=== PATIENT | male | born 1960 | race Caucasian/White ===

== ENCOUNTER 2020-01-17 07:36 | Day surgery (SDC) | payer OTHER, SELFPAY ==
[2020-01-13 15:50] VITALS: BMI 25.5
--- NOTE | 2020-01-16 08:57 | P.CONAN_ITS ---
Documented by User: Malena Blum 01/16/20 08:58 HPI - Anesthesia Eval Consult details Narrative: 59yo M for Colonoscopy [facility] Past Medical History Medical History Asthma COPD (chronic obstructive pulmonary disease) Depression Eye abnormality History of diverticulitis Macular degeneration Surgical History Surgical History History of right inguinal hernia repair Social History Social History Smoking Status: Unknown if ever smoked Advance Directives: No Advance Directives Information Provided: No Advance Directives on File: No Meds Allergies Allergy/AdvReac Type Severity Reaction Status Date / Time quetiapine [From Seroquel] Allergy Unknown Verified 01/17/20 07:46 Home Medications Medication Instructions Recorded Confirmed Type hydroxyzine HCl 01/13/20 01/13/20 History lamotrigine 01/13/20 History lisinopril 5 mg PO DAILY 01/17/20 01/17/20 History Exam Exam Date and Time: January 16, 2020 0857 Height,Weight and Vital Signs: Height 6 ft 2 in Weight 90.265 kg Pertinent Lab Results Pertinent Lab Results: Laboratory Tests 10/22/19 10/22/19 13:40 13:40 WBC 7.0 Hgb 17.5 Hct 53.4 H Plt Count 201 Sodium 139 Potassium 4.2 Chloride 107 BUN 18 H Creatinine 0.98 Assessment and Plan Assessment Anesthesia Assessment: Chart Reviewed Documented by User: Glen Vargas 01/17/20 08:08 [facility] Past Medical History Medical History Asthma COPD (chronic obstructive pulmonary disease) Depression Eye abnormality History of diverticulitis Macular degeneration Surgical History Surgical History History of right inguinal hernia repair Social History Social History (Reviewed 01/17/20 @ 08:08 by Glen Griggs Smoking Status: Unknown if ever smoked Advance Directives: No Advance Directives Information Provided: No Advance Directives on File: No Meds Allergies Allergy/AdvReac Type Severity Reaction Status Date / Time quetiapine [From Seroquel] Allergy Unknown Verified 01/17/20 07:46 Home Medications Medication Instructions Recorded Confirmed Type hydroxyzine HCl 01/13/20 01/13/20 History lamotrigine 01/13/20 History lisinopril 5 mg PO DAILY 01/17/20 01/17/20 History Exam Airway Mallampati Class: III TM Dist: >3cm Neck ROM: Full
[2020-01-17 07:51] VITALS: BP 155/94; PULSE 68; RESP 16; TEMP 36.4; O2SAT 95
[2020-01-17] MEDS: Lactated Ringers 1,000 ML 100 ML IVCONT (08:07)
--- NOTE | 2020-01-17 08:22 | MHC.SHP ---
Pre-Procedural Eval Section B Chief Complaint: Diverticulitis Details of Present Illness: See H&P no changes Relevant Family History (Specify if Yes): No Relevant Social History: None Present Medications: see Short Stay Collaborative assessment Medical History: No relevant PMH (See H&P no changes) History of Previous Operations: No relevant previous surgery Allergies: Allergies Allergy/AdvReac Type Severity Reaction Status Date / Time quetiapine [From Seroquel] Allergy Unknown Verified 01/17/20 07:46 Review of Systems Sugical H&P ROS: Negative: Constitution, Cardiovascular, Respiratory, Neurological, Psychiatric, Hem-Onc, Allergic/Immunologic, Gastrointestinal, Genitourinary, Musculoskeletal, Integumentary, Endocrine and Eyes/Ears/Nose/Throat Exam Surgical H&P Exam: Normal: HEENT, Normal: Heart, Normal: Lungs, Normal: Extremities, Normal: Abdomen, Normal: Skin and Normal: Neurological Plan Diagnosis/Plan: Unchanged Patient has been examined and remains a candidate for the planned procedure
--- NOTE | 2020-01-17 08:51 | PM.OP ---
Brief Operative Note Date of Service: 01/17/20 Pre-op diagnosis: diverticulitis Post-op diagnosis: same (diverticulosis) Procedure: colonoscopy Surgeon: Nico Wadsworth Anesthesia: MAC Estimated blood loss (mL): 0 Pathology: none sent Condition: stable Disposition: PACU
[2020-01-17 08:52] VITALS: BP 144/82; PULSE 66; RESP 16; TEMP 36.1; O2SAT 96
--- NOTE | 2020-01-17 08:52 | HO.ANESPROP2 ---
[facility] Past Medical History Medical History Asthma COPD (chronic obstructive pulmonary disease) Depression Eye abnormality History of diverticulitis Macular degeneration Surgical History Surgical History History of right inguinal hernia repair Social History Social History Smoking Status: Unknown if ever smoked Advance Directives: No Advance Directives Information Provided: No Advance Directives on File: No Meds Allergies Allergy/AdvReac Type Severity Reaction Status Date / Time quetiapine [From Seroquel] Allergy Unknown Verified 01/17/20 07:46 Home Medications Medication Instructions Recorded Confirmed Type hydroxyzine HCl 01/13/20 01/13/20 History lamotrigine 01/13/20 History lisinopril 5 mg PO DAILY 01/17/20 01/17/20 History Exam Exam Date and Time: January 17, 2020 0852 Height,Weight and Vital Signs: Height 6 ft 2 in Weight 90.265 kg Last Vital Signs Temp 97.6 F 01/17/20 07:51 Pulse 68 01/17/20 07:51 Resp 16 01/17/20 07:51 BP 155/94 H 01/17/20 07:51 Pulse Ox 95 01/17/20 07:51 Airway Mallampati Class: II TM Dist: >3cm Neck ROM: Full
--- NOTE | 2020-01-17 08:58 | HO.ANESPROP2 ---
[facility] Past Medical History Medical History Asthma COPD (chronic obstructive pulmonary disease) Depression Eye abnormality History of diverticulitis Macular degeneration Surgical History Surgical History History of right inguinal hernia repair Social History Social History Smoking Status: Unknown if ever smoked Advance Directives: No Advance Directives Information Provided: No Advance Directives on File: No Meds Allergies Allergy/AdvReac Type Severity Reaction Status Date / Time quetiapine [From Seroquel] Allergy Unknown Verified 01/17/20 07:46 Home Medications Medication Instructions Recorded Confirmed Type hydroxyzine HCl 01/13/20 01/13/20 History lamotrigine 01/13/20 History lisinopril 5 mg PO DAILY 01/17/20 01/17/20 History Exam Exam Date and Time: January 17, 2020 0858 Height,Weight and Vital Signs: Height 6 ft 2 in Weight 90.265 kg Last Vital Signs Temp 97.0 F 01/17/20 08:52 Pulse 66 01/17/20 08:52 Resp 16 01/17/20 08:52 BP 144/82 H 01/17/20 08:52 Pulse Ox 96 01/17/20 08:52 Airway Mallampati Class: II TM Dist: >3cm Neck ROM: Full
[2020-01-17 09:07] VITALS: BP 147/89; PULSE 66; RESP 18; TEMP 36.1; O2SAT 97
--- NOTE | 2020-01-17 09:21 | OP_ITS ---
SURGEON: Nico Wadsworth MD INDICATIONS: Diverticulitis. PREOPERATIVE DIAGNOSIS: POSTOPERATIVE DIAGNOSIS: PROCEDURE PERFORMED: ESTIMATED BLOOD LOSS: COMPLICATIONS: ANESTHESIA: Monitored anesthesia care. ASSISTANTS: SPECIMENS: PROCEDURE: Colonoscopy to the cecum. DESCRIPTION OF PROCEDURE: History and physical performed. The risks and benefits of the procedure were explained to the patient and informed consent was obtained. The patient was placed in the left lateral decubitus position. A digital rectal exam was performed and it was found to be normal. The Olympus pediatric video colonoscope was introduced into the rectum and advanced to the cecum without difficulty. The cecum was identified by transillumination, palpation, and identification of ileocecal valve. Examination was performed. The scope was removed. He tolerated the procedure well and was transferred to the recovery area in stable condition. FINDINGS: The terminal ileum was not examined. The visualized colonic mucosa was normal. The quality of the prep was good. No polyps were identified. There were some inverted diverticula in the right colon. There was diverticulosis throughout the sigmoid and scattered throughout the remainder of the colon. Retroflexed examination showed small internal hemorrhoids. IMPRESSION: Diverticulosis. RECOMMENDATIONS: 1. Follow up as needed. 2. Repeat colonoscopy is recommended in 10 years for average-risk individuals. MD CHRISTA Goddard/RUMA / [id number]
--- NOTE | 2020-01-17 09:38 | HO.POSTANES ---
Post Anesthesia Evaluation Post Anesthesia Evaluation Vital Signs: Vital Signs Temp Pulse Resp BP Pulse Ox 01/17/20 09:07 97.0 F 66 18 147/89 H 97 01/17/20 08:52 97.0 F 66 16 144/82 H 96 01/17/20 07:51 97.6 F 68 16 155/94 H 95 Anesthesia: Monitored Mental Status: Awake Pain Control: Satisfactory Nausea/Vomiting: None Hydration: Adequate Anesthesia-Related Issues: No Anes. Related Issues
== END 2020-01-17 09:57 | disposition home or self-care (01) ==
PROVIDERS: PCP Internal Medicine; Visit Provider Internal Medicine Gastroenterology
PROC: 0DJD8ZZ Inspection of Lower Intestinal Tract, Via Natural or Artificial Opening Endoscopic (ICD-10-PCS; CPT 45378; principal; 2020-01-17 08:30)
DX: K57.30 Diverticulosis of large intestine without perforation or abscess without bleeding (principal); K64.8 Other hemorrhoids
CPT/HCPCS: 45378

== ENCOUNTER 2020-03-05 11:08 | Outpatient (REF) | payer OTHER, SELFPAY ==
[2020-03-05 13:55] LABS: MANUAL DIFF FLAG NO
[2020-03-05 14:08] LABS: Basophils Absolute Auto 0.1 X10*3/uL (0.0-0.2); Eosinophils Absolute Auto 0.2 X10*3/uL (0.0-0.4); Eosinophils Percent Auto 3.1 % (0-4); Hematocrit 54.1 % (42-52); Hemoglobin 17.8 g/dl (14.0-18.0); Imm Gran Abs Auto 0.04 X10*3/uL (0.00-0.03); Imm Gran Pct Auto 0.6 % (0.0-0.4); Lymphocytes Percent Auto 29.1 % (20-40); Mean Corpuscular HGB Conc 32.9 g/dl (31.0-36.0); Mean Corpuscular Hemoglobin 28.6 pg (27.0-33.0); Mean Platelet Volume 10.5 fL (9.4-12.4); Monocytes Absolute Auto 0.7 X10*3/uL (0.1-1.2); Monocytes Percent Auto 9.8 % (2-11); Neutrophils Absolute Auto 3.8 X10*3/uL (2.0-8.3); Neutrophils Percent Auto 56.4 % (45-73); Platelet Count 178 X10*3/uL (160-400); Red Blood Count 6.22 X10*6/uL (4.60-5.80); Red Cell Distribution Width 14.2 % (11.0-16.0); White Blood Count 6.8 X10*3/uL (4.8-10.8)
[2020-03-05 14:34] LABS: Anion Gap 14 (12-20); Blood Urea Nitrogen 22 mg/dL (9-16); Calcium 9.2 mg/dL (8.4-10.2); Carbon Dioxide 23 mmol/L (22-29); Chloride 107 mmol/L (96-108); Estimated Glomerular Filt Rate > 60; Glucose Random 98 mg/dL (60-115); Potassium 4.5 mmol/l (3.3-5.1); Sodium 139 mmol/L (135-145)
[2020-03-05 14:56] LABS: Free T4 (Free Thyroxine) 0.89 ng/dL (0.71-1.85); Prostate Specific Antigen 3.89 ng/mL (<0.05-4.0); Thyroid Stimulating Hormone 0.31 uIU/mL (0.32-4.0)
== END 2020-03-05 11:09 | disposition home or self-care (01) ==
LOC: HO.10HDL 11:08
PROVIDERS: Visit Provider Internal Medicine
DX: R97.20 Elevated prostate specific antigen [PSA] (principal); E03.9 Hypothyroidism, unspecified; I10 Essential (primary) hypertension; Z12.5 Encounter for screening for malignant neoplasm of prostate
CPT/HCPCS: 36415; 80048; 84153; 84439; 84443; 85025

== ENCOUNTER 2020-03-23 08:32 | Outpatient (REF) | payer OTHER, SELFPAY ==
--- NOTE | ~2020-03-23 | US_ITS ---
EXAMINATION: US THYROID CLINICAL INFORMATION: Nontoxic single thyroid nodule. COMPARISON: None. TECHNIQUE: Linear transducer grayscale and color Doppler examination with attention to the region of the thyroid. FINDINGS: SIZE: Measurements of the thyroid lobes and nodules are given in sagittal, anteroposterior and transverse dimensions respectively. Right Thyroid Lobe: 6.9 x 2.5 x 3.1 cm, volume 27.6 mL. Parenchyma: The gland echotexture is homogeneous. Thyroid vascularity is normal. Left Thyroid Lobe: 6.3 x 3.6 x 3.4 cm, volume 40.3 mL. Parenchyma: The gland echotexture is heterogeneous. Thyroid vascularity is normal. Isthmus: 0.5 cm in maximum AP dimension. Estimated total number of nodules greater than or equal to 1 cm: 1. Product Safety Administrator nodules are described as follows: 1. Location: Right superior. Size: 0.5 x 0.4 x 0.5 cm, volume 0.5 mL. Nodule characteristics: Composition: Spongiform (0). ACR TI-RADS total points: 0 ACR TI-RADS category: 1 2. Location: Right mid. Size: 0.3 x 0.4 x 0.4 cm, volume 0.5 mL. Nodule characteristics: Composition: Spongiform (0). ACR TI-RADS total points: 0 ACR TI-RADS category: 1 3. Location: Left inferior. Size: 4.1 x 4.0 x 2.9 cm, volume 24.9 mL. Nodule characteristics: Composition: Solid/almost completely solid (2). Echogenicity: Hyperechoic (1). Shape: Taller than wide (3). Margins: Smooth (0). Echogenic Foci: None (0). ACR TI-RADS total points: 6 ACR TI-RADS category: 4 4. Location: Left isthmus. Size: 0.8 x 0.4 x 0.6 cm, volume 0.1 mL. Nodule characteristics: Composition: Spongiform (0). ACR TI-RADS total points: 0 ACR TI-RADS category: 1 NODES: No lymphadenopathy is seen in the tissue surrounding the thyroid gland. US/US thyroid IMPRESSION: High suspicious nodule lower pole left lobe. Based on TI-RADS recommendations, a fine-needle aspiration biopsy is recommended. Thyromegaly with multiple bilateral nodules as described above. In addition, there are small simple and colloid cysts seen bilaterally. ACR TI-RADS RECOMMENDATIONS: Ultrasound-guided fine-needle aspiration, followup ultrasound, no further follow up. * TR1 (0 point) and TR 2 (2 points): No FNA or follow up * TR3 (3 points): FNA if more than or equal to 2.5 cm in maximum dimension, follow up in 1, 3 and 5 years if 1.5 to 2.4 cm in maximum dimension. * TR4 (4-6 points): FNA if more than or equal to 1.5 cm in maximum dimension, follow up in 1, 2, 3 and 5 years if 1 to 1.4 cm in maximum dimension. * TR5 (more than or equal to 7 points): FNA if more than or equal to 1 cm in maximum dimension, follow up every year for 5 years if 0.5 to 0.9 cm in maximum dimension. * TR3, TR4 or TR5 nodules that are below the size threshold for follow up receive no follow up.
== END 2020-03-23 08:33 | disposition home or self-care (01) ==
LOC: HO.US 08:32
PROVIDERS: Visit Provider Internal Medicine
DX: E04.1 Nontoxic single thyroid nodule (principal)
CPT/HCPCS: 76536

== ENCOUNTER 2020-07-14 11:38 | Outpatient (REF) | payer OTHER, SELFPAY ==
[2020-07-14 12:27] LABS: MANUAL DIFF FLAG NO
[2020-07-14 12:42] LABS: Hemoglobin 18.5 g/dl (14.0-18.0); Mean Corpuscular HGB Conc 33.6 g/dl (31.0-36.0); Mean Corpuscular Hemoglobin 29.6 pg (27.0-33.0); Mean Platelet Volume 10.4 fL (9.4-12.4); Neutrophils Percent Auto 70.8 % (45-73); Platelet Count 181 X10*3/uL (160-400); Red Blood Count 6.25 X10*6/uL (4.60-5.80); Red Cell Distribution Width 13.5 % (11.0-16.0); White Blood Count 9.3 X10*3/uL (4.8-10.8)
[2020-07-14 12:43] LABS: Basophils Absolute Auto 0.1 X10*3/uL (0.0-0.2); Basophils Percent Auto 0.5 % (0-2); Eosinophils Absolute Auto 0.2 X10*3/uL (0.0-0.4); Eosinophils Percent Auto 1.9 % (0-4); Imm Gran Abs Auto 0.06 X10*3/uL (0.00-0.03); Imm Gran Pct Auto 0.6 % (0.0-0.4); Lymphocytes Absolute Auto 1.8 X10*3/uL (1.2-4.9); Lymphocytes Percent Auto 18.8 % (20-40); Monocytes Absolute Auto 0.7 X10*3/uL (0.1-1.2); Monocytes Percent Auto 7.4 % (2-11); Neutrophils Absolute Auto 6.6 X10*3/uL (2.0-8.3)
[2020-07-14 13:11] LABS: Prothrombin Time 11.3 SEC (10.8-13.0)
[2020-07-14 13:13] LABS: Anion Gap 14 (12-20); Blood Urea Nitrogen 14 mg/dL (9-16); Calcium 10.3 mg/dL (8.4-10.2); Carbon Dioxide 23 mmol/L (22-29); Chloride 107 mmol/L (96-108); Estimated Glomerular Filt Rate > 60; Glucose Random 103 mg/dL (60-115); Potassium 4.5 mmol/L (3.3-5.1); Sodium 139 mmol/L (135-145)
[2020-07-14 13:15] LABS: Partial Thromboplastin Time 39.7 SEC (24.1-38.0)
== END 2020-07-14 11:39 | disposition home or self-care (01) ==
LOC: HO.LAB 11:38
PROVIDERS: PCP Internal Medicine; Visit Provider Internal Medicine
DX: Z01.818 Encounter for other preprocedural examination (principal); Z79.01 Long term (current) use of anticoagulants
CPT/HCPCS: 36415; 80048; 85025; 85610; 85730

== ENCOUNTER → 2020-10-01 15:27 | Outpatient (BNVA) | payer OTHER, SELFPAY | PROVIDERS: PCP Internal Medicine; Referring Provider Internal Medicine; Visit Provider Surgery | DX: K40.90 Unilateral inguinal hernia, without obstruction or gangrene, not specified as recurrent (principal) | CPT/HCPCS: 99202 ==

== ENCOUNTER 2020-11-10 05:54 | Day surgery (SDC) | payer OTHER, SELFPAY ==
[2020-11-04 15:36] VITALS: BMI 25.9
--- NOTE | 2020-11-09 09:32 | HO.ANESPROP2 ---
Documented by User: Malena Blum NP 11/09/20 09:37 HPI - Anesthesia Eval Consult details Narrative: 60yo M for Left Hernia Repair Inguinal with mesh PMFSH Active Problems Active Problems: All Active Problems (Updated 11/04/20 @ 15:10 by Kari Medeiros RN) Left inguinal hernia (Acute) Past Medical History Medical History Asthma COPD (chronic obstructive pulmonary disease) Depression Eye abnormality History of diverticulitis Left inguinal hernia Macular degeneration Neuropathy Thyroid nodule Surgical History Surgical History History of right inguinal hernia repair Hx of colonoscopy Social History Social History Are you a primary child care to a significant other at home: No Do you presently have visiting nurse or other home services: No Patient Tobacco Use Status: Former Tobacco user Quit Date: 2009 Tobacco use type: Cigarette Use of substances other than those prescribed or required for medical reasons: No Have you been hit, kicked, punched, or otherwise hurt by someone within the past year? If so, by whom?: No Are you DNR?: No Advance Directives: No Advance Directives Information Provided: No Advance Directives on File: No Recently lost weight without trying: No Eating poorly because of decreased appetite: No Nutrition Risks: No Nutritional Risk Meds Allergies Allergy/AdvReac Type Severity Reaction Status Date / Time quetiapine [From Seroquel] Allergy Difficulty Verified 11/04/20 15:35 Breathing Home Medications Medication Instructions Recorded Confirmed Last Taken Type hydroxyzine HCl 50 mg tablet 1 tab PO BEDTIME 11/04/20 11/04/20 Unknown History lamotrigine 200 mg tablet 1 tab PO BEDTIME 11/04/20 11/04/20 Unknown History lisinopril 30 mg tablet 1 tab PO DAILY 11/04/20 11/04/20 Unknown History Exam Exam Date and Time: November 09, 2020 0932 Height,Weight and Vital Signs: Height 6 ft 2 in Weight 91.626 kg Pertinent Lab Results Pertinent Lab Results: Laboratory Tests 07/14/20 07/14/20 12:00 12:00 WBC 9.3 Hgb 18.5 H Hct 55.0 H Plt Count 181 Sodium 139 Potassium 4.5 Chloride 107 Carbon Dioxide 23 BUN 14 Creatinine 0.91 Assessment and Plan Assessment Anesthesia Assessment: Chart Reviewed Documented by User: Wayne Garcia MD 11/10/20 07:25 REPLACED BY [facility] Past Medical History Medical History Asthma COPD (chronic obstructive pulmonary disease) Depression Eye abnormality History of diverticulitis Left inguinal hernia Macular degeneration Neuropathy Thyroid nodule Family History Family history of problems with anesthesia: No Surgical History Surgical History History of right inguinal hernia repair Hx of colonoscopy History of Problems with Anesthesia: No Social History Social History Are you a primary child care to a significant other at home: No Do you presently have visiting nurse or other home services: No Patient Tobacco Use Status: Former Tobacco user Quit Date: 2009 Tobacco use type: Cigarette Use of substances other than those prescribed or required for medical reasons: No Have you been hit, kicked, punched, or otherwise hurt by someone within the past year? If so, by whom?: No Are you DNR?: No Advance Directives: No Advance Directives Information Provided: No Advance Directives on File: No Recently lost weight without trying: No Eating poorly because of decreased appetite: No Nutrition Risks: No Nutritional Risk Meds Allergies Allergy/AdvReac Type Severity Reaction Status Date / Time quetiapine [From Seroquel] Allergy Difficulty Verified 11/04/20 15:35 Breathing Home Medications Medication Instructions Recorded Confirmed Last Taken Type hydroxyzine HCl 50 mg tablet 1 tab PO BEDTIME 11/04/20 11/04/20 Unknown History lamotrigine 200 mg tablet 1 tab PO BEDTIME 11/04/20 11/04/20 Unknown History lisinopril 30 mg tablet 1 tab PO DAILY 11/04/20 11/04/20 Unknown History Exam Airway Mallampati Class: I TM Dist: >3cm Neck ROM: Full Loose/Missing/Broken Teeth: No Heart: ok Lungs: ok Assessment and Plan Assessment Anesthesia Assessment: Anesthesia Plan Discussed and Chart Reviewed Final Anesthetic Review Family History of Problems with Anesthesia: No History of Problems with Anesthesia: No NPO: Yes ASA Class: II Final Preanesthetic Review: No Changes in Pt Med Stat, Meds/Allgs Chart Reviewed, Consent Obtained/Reviewed and Anes Risks/Benef Reviewed Patient Risk: Intermediate Procedure Risk: Low Anesthetic Plan Anesthetic Plan: GA and Agree w/ Assess. and Plan Disposition: Standard PACU
[2020-11-10] VITALS (10 sets, daily range): BP systolic 150–178; BP diastolic 88–109; PULSE 54–64; RESP 12–20; TEMP 36.2–36.3; O2SAT 92–96
[2020-11-10] MEDS: Lactated Ringers 1,000 ML 100 ML IVCONT (06:36)
--- NOTE | 2020-11-10 07:21 | MHC.SHP ---
Pre-Procedural Eval Section A Date of Service: 11/10/20 Section B Chief Complaint: unilateral inguinal hernia without obstruction Details of Present Illness: has had reducible mass on left groin, with discomfort Relevant Family History (Specify if Yes): No Relevant Social History: Tobacco Use Present Medications: see Short Stay Collaborative assessment Medical History: Significant History (COPD, depression, macular degeneration) Allergies: Allergies Allergy/AdvReac Type Severity Reaction Status Date / Time quetiapine [From Seroquel] Allergy Difficulty Verified 11/04/20 15:35 Breathing Review of Systems Sugical H&P ROS: Negative: Constitution, Cardiovascular, Respiratory, Neurological, Psychiatric, Hem-Onc, Allergic/Immunologic, Gastrointestinal, Genitourinary, Musculoskeletal, Integumentary, Endocrine and Eyes/Ears/Nose/Throat Exam Surgical H&P Exam: Normal: HEENT, Normal: Heart, Normal: Lungs, Normal: Extremities, Normal: Skin and Normal: Neurological and Significant Findings: Abdomen (LIH reducible) Plan Diagnosis/Plan: Unchanged I have reviewed the history and physical and performed a pertinent physical examination on my patient. No changes have occurred unless specified.
--- NOTE | 2020-11-10 08:16 | W.PM.OPN ---
Operative Note Operative Note Date of Service: 11/10/20 Narrative: Preop diagnosis: Left inguinal hernia Postop diagnosis: Left inguinal hernia, direct Procedure: Repair of a left inguinal hernia with mesh Surgeon: Kannan Gustafson MD molding line assistant: GRIFFIN Ramesh The patient is a 60-year-old male with a reducible mass in the left groin consistent with an inguinal hernia. He understood the technique of repair with mesh. He was aware of the risks, benefits, and alternatives He was brought the operating room and placed supine on the table under general anesthesia via laryngeal mask airway. The left groin was prepped and draped in the usual sterile fashion. A surgical time-out was done. The patient received cefazolin 2 g IV preoperatively I infiltrated the planned line of incision with lidocaine 1%. I made a short incision in the skin along an imaginary line from the anterior superior iliac spine to the pubic ramus using blade 15. This was carried down through the full-thickness of the skin and subcutaneous fat with electrocautery until was able to visualize the external oblique aponeurosis. I bluntly dissected the external oblique aponeurosis to expose the external ring. I incised the external oblique aponeurosis on the roof of the inguinal canal using electrocautery. I applied hemostats on the edges of the divided aponeurosis. I bluntly dissected the underside of the aponeurosis. I then bluntly dissected the spermatic cord and its contents using my index finger until was able to pass a Jasen drain around this. This [place] drain was then used for retraction. I was able to identify a sac on the floor of the canal. This was actually therefore a direct hernia. I the sac off of the rest of the cord contents. Identify the vas deferens and the accompanying vessels. I reinforced the direct hernia with a large size Prolene plug. I secured the plug with Prolene to suture to shelving edge of the inguinal and laterally, and the internal oblique muscle medially and superiorly using the inner leaves of the plug itself. I then reinforced the entire floor of the canal with a keyhole mesh. The tails of the mesh were passed around the cord at the level of the internal ring. I secured the mesh Prolene 2 sutures to the shelving edge of the inguinal and laterally, the internal oblique superiorly medially and the pubic ramus. I irrigated. I observed for hemostasis. Once hemostasis was ensured I proceeded to remove the Jasen drain. I closed the external oblique aponeurosis with a running Dexon 2-0 stitch to re-create the external ring I reapposed the subcutaneous layer with Dexon 3-0 interrupted sutures. Skin closure was achieved with Dexon 4-0 subcuticular running stitch. I infiltrated the area around the incision with Marcaine 0.5% for postop analgesia. Steri-Strips and dressings were applied. The patient tolerated procedure well. There were no complications noted. Initial and final counts of sponges and instruments were correct. Estimated blood loss about 3 cc. Patient was extubated without difficulty and transferred to the recovery room with stable vital signs.
--- NOTE | 2020-11-10 08:21 | P.BOP_ITS ---
Brief Operative Note Date of Service: 11/10/20 Pre-op diagnosis: Left inguinal hernia Post-op diagnosis: same Procedure: Repair of left inguinal hernia with mesh Surgeon: Kannan Gustafson MD Anesthesia: GLMA Was an Telephone Services Sales Representative used for this Procedure?: Yes Telephone Services Sales Representative: Arely Ramesh Estimated blood loss (mL): 3 Pathology: none sent Condition: stable Disposition: PACU
[2020-11-10] MEDS: Acetaminophen 325 MG TABLET 650 MG PO (09:04)
[2020-11-10] MEDS: oxyCODONE HCl Immed Release 5 MG TABLET 10 MG PO (09:05)
== END 2020-11-10 11:48 | disposition home or self-care (01) ==
PROVIDERS: PCP Internal Medicine; Visit Provider Surgery
PROC: (CPT 49505; principal; 2020-11-10 07:30)
DX: K40.90 Unilateral inguinal hernia, without obstruction or gangrene, not specified as recurrent (principal); J44.9 Chronic obstructive pulmonary disease, unspecified
CPT/HCPCS: 49505; C1781; J0690; J1100; J1885; J2250; J2405; J3010

== ENCOUNTER → 2020-11-25 10:06 | Outpatient (BNVA) | payer OTHER, SELFPAY | PROVIDERS: PCP Internal Medicine; Referring Provider Internal Medicine; Visit Provider Surgery | DX: K40.90 Unilateral inguinal hernia, without obstruction or gangrene, not specified as recurrent (principal); Z87.891 Personal history of nicotine dependence; Z88.8 Allergy status to other drugs, medicaments and biological substances; Z87.19 Personal history of other diseases of the digestive system; Z79.899 Other long term (current) drug therapy | CPT/HCPCS: 99212 ==

== ENCOUNTER → 2021-02-25 08:50 | Outpatient (BNVA) | payer OTHER, SELFPAY | PROVIDERS: PCP Internal Medicine; Referring Provider Internal Medicine; Visit Provider Surgery | DX: R10.32 Left lower quadrant pain (principal) | CPT/HCPCS: 99212 ==